=== PATIENT | female | born 1995 ===

== ENCOUNTER 2017-03-26 15:31 | Emergency (ER) | payer OTHER ==
[~2017-03-26] VITALS: Ht 157.5 cm; Wt 51.3 kg
[2017-03-26 15:34] VITALS: TEMP 36.6; Ht 157.5 cm; Wt 51.3 kg
[2017-03-26] MEDS ORDERED: ACETAMINOPHEN 325 MG TAB PO STA (16:24)
[2017-03-26] MEDS ORDERED: ONDANSETRON 4MG OD TAB PO STA (16:24)
[2017-03-26] MEDS ORDERED: IBUPROFEN 600 MG TAB PO STA (16:24)
[2017-03-26] MEDS ORDERED: [UNRECOGNIZED DRUG - REMARK] PO (16:48)
[2017-03-26] MEDS ORDERED: ONDA4TAB10 SL (17:09)
[2017-03-26] MEDS ORDERED: IBUP600T44 PO (17:09)
[2017-03-26 17:45] VITALS: BP 110/74; PULSE 84; O2SAT 98
--- NOTE | 2017-03-26 18:22 | EMERGENCY ROOM VISIT NOTE ---
History Report prepared by Mara: Eun Barrientos Under the Supervision of: Dr. Angel Amato M.D. First contact with patient: 16:18 Chief Complaint: ABDOMINAL PAIN Stated Complaint: STOMACHE Nursing Triage Summary: Pt reports diffuse abd pain that began at midnight, n/v. Emesis x 2. Denies diarrhea. Pt states menstrual cycle just started. Denies urinary s/sx. History of Present Illness The patient is a 21 year old female who presents to the Emergency Room with complaints of persistent lower abdominal pain that began yesterday. The patient rates her discomfort as a 6/10 in severity. The patient describes her discomfort as a menstrual cramp. She notes that she vomited twice yesterday, but did not vomit today. The patient denies any fevers, diarrhea, or urinary symptoms. The patient states that her menstrual cycle began yesterday, noting that it is late this month. She states that she has had similar painful periods in the past. The patient denies being on control or having a history of ovarian cysts. She has never had sex, she is a virgin. Source of History: patient Onset: Yesterday Position: abdomen Symptom Intensity: 6/10 Review of Systems See HPI for pertinent positives & negatives. A total of 10 systems reviewed and were otherwise negative. Family History No pertinent family history. Social History Smoking Status: Never Smoker Smokeless Tobacco Use: No Alcohol Use: none Drug Use: none Marital Status: single Occupation Status: [employer] Current/Historical Medications Scheduled Ondasetron Odt (Zofran Odt), 4 MG SL Q6H [Otc Pain Pill], 2 TABS PO PRN Scheduled PRN Ibuprofen (Motrin), 600 MG PO Q6 PRN for Pain Physical Exam Vital Signs Date Time Temp Pulse Resp B/P (MAP) Pulse Ox O2 Delivery O2 Flow Rate FiO2 03/26/17 17:45 84 16 110/74 98 03/26/17 15:34 36.6 84 18 115/73 100 Room Air Physical Exam GENERAL: Patient is in no acute distress. HEENT: No acute trauma, normocephalic atraumatic, mucous membranes moist, no nasal congestion, no scleral icterus. NECK: No stridor, no adenopathy, no meningismus, trachea is midline. LUNGS: Clear to auscultation bilaterally, no wheeze, no rhonchi, breath sounds equal. HEART: 2/6 systolic murmur, regular rate rhythm. ABDOMEN: Mildly tender to lower pelvis bilaterally. Bowel sounds positive, no hernias, no peritonitis. EXTREMITIES: No cyanosis or edema, full range of motion of all the joints without pain or difficulty, no signs for acute trauma. NEUROLOGIC: Oriented x 3, no acute motor or sensory deficits, no focal weakness. SKIN: No rash, no jaundice, no diaphoresis. Medical Decision & Procedures ER Provider Diagnostic Interpretation: Urine dip showed: +1 leukocytes, 250 of blood, no infection Urine test: negative Laboratory Results Test 03/26/17 16:40 Urine Test NEG (NEG) Medications Administered Medications (Trade) Dose Ordered Sig/Sasha Route Start Time Stop Time Status Last Admin Dose Admin Acetaminophen (Tylenol Tab) 650 mg NOW STAT PO 03/26/17 16:24 03/26/17 16:27 DC 03/26/17 16:43 650 MG Ibuprofen (Motrin Tab) 600 mg NOW STAT PO 03/26/17 16:24 03/26/17 16:27 DC 03/26/17 16:44 600 MG Ondansetron HCl (Zofran Odt) 4 mg NOW STAT PO 03/26/17 16:24 03/26/17 16:27 DC 03/26/17 16:42 4 MG ED Course 1428: The patient was evaluated in room C6. A complete history and physical exam was performed. 1624: Ordered Tylenol Tab 650mg PO, Motrin Tab 600mg PO, Zofran Odt 4mg Po. Medical Decision The patient is a 21 year old female who presents to the ED with complaints of abdominal pain. Differential diagnoses considered include Ovarian cyst, Painful menstruation, UTI, . The patient presents with lower pelvic cramping. She is on her menstrual cycle. She has had heavy and painful periods in the past. The patient was not toxic, she was not febrile. Urine dip showed evidence for her menstrual cycle, no infection. testing was negative. The patient did not want any imaging or further testing. She agreed to be seen in the outpatient [facility] office for a pelvic ultrasound. The patient was given oral Motrin, oral Tylenol and oral Zofran. She is being discharged on Motrin and Zofran. If worsening, she can return. Her presentation is consistent with a heavy, painful menstrual cycle. She understands that the pelvic ultrasound will help with the diagnosis of potential ovarian cyst or other ovarian pathology. Medication Reconcilliation Current Medication List: was personally reviewed by me Blood Pressure Screening Patient's blood pressure: Normal blood pressure Impression Primary Impression: Painful menstruation Additional Impression: Pelvic pain Scribe Attestation The scribe's documentation has been prepared under my direction and personally reviewed by me in its entirety. I confirm that the note above accurately reflects all work, treatment, procedures, and medical decision making performed by me. Departure Information Dispostion Home / Self-Care Prescriptions Ondasetron Odt (ZOFRAN ODT) 4 Mg Tab 4 MG SL Q6H for Nausea, #15 TAB Prov: Angel Amato M.D. 03/26/17 Ibuprofen (Motrin) 600 Mg Tab 600 MG PO Q6 Y for Pain, #15 TAB With Food Prov: Angel Amato M.D. 03/26/17 Referrals No Doctor, Assigned (PCP) Patient Instructions My [facility] Health Problem Qualifiers
== END 2017-03-26 17:58 | disposition home or self-care (01) ==
LOC: C.EDB 15:34 → C.EDC 17:58
DX: N94.6 Dysmenorrhea, unspecified (principal); R10.2 Pelvic and perineal pain